=== PATIENT | female | born 1960 | race Two or more races ===

== ENCOUNTER 2025-07-16 15:05 | Emergency (ER) | payer OTHER ==
[~2025-07-16] VITALS: Ht 165.1 cm; Wt 59.0 kg
[2025-07-16] MEDS ORDERED: METFORMIN HCL500 M3 (15:34)
[2025-07-16] MEDS ORDERED: SYNTHROID100 MCG PO (15:34)
[2025-07-16] MEDS ORDERED: ATORVASTATIN CA20 MG PO (15:34)
[2025-07-16] MEDS ORDERED: 8HR ARTHRITIS650 M1 (15:35)
[2025-07-16] MEDS ORDERED: ECOTRIN81 MG (15:35)
[2025-07-16] MEDS ORDERED: CHILDREN'S ASPI81 MG (15:36)
[2025-07-16] MEDS ORDERED: ZETIA10 MG (15:37)
[2025-07-16] MEDS ORDERED: DEXAMETHASONE SODIUM PHOSPHATE 4 MG/ML VIAL IM ONE (17:00)
[2025-07-16] MEDS ORDERED: ACETAMINOPHEN 325 MG TABLET PO ONE (17:00)
[2025-07-16] MEDS ORDERED: DEXAMETHASONE SODIUM PHOSPHATE 4 MG/ML VIAL ONE (17:16)
[2025-07-16] MEDS ORDERED: ACETAMINOPHEN 500 MG GEL..CAP PO ONE (17:16)
[2025-07-16] MEDS ORDERED: 8 HOUR PAIN RE650 M1 PO (19:00)
== END 2025-07-16 21:40 | disposition home or self-care (01) ==
LOC: ER 15:05
DX: R51.9 Headache, unspecified (principal); I10 Essential (primary) hypertension; E03.8 Other specified hypothyroidism; E11.9 Type 2 diabetes mellitus without complications; Z79.84 Long term (current) use of oral hypoglycemic drugs; Z88.8 Allergy status to other drugs, medicaments and biological substances
CPT/HCPCS: 70450; 72125; 96372; 99284; J1100